=== PATIENT | male | born 1985 | race African-American/Black ===

== ENCOUNTER 2022-02-22 11:22 | Emergency (ER) | payer OTHER ==
[~2022-02-22] VITALS: Ht 188 cm; Wt 90.7 kg
[2022-02-22 12:03] VITALS: BP 128/82
--- NOTE | 2022-02-22 12:03 | NUR ---
TO ER BED 9. "FEEL WEIRD" X 1 WEEK,"HAD UNPROTECTED SEX 2 WEEKS AGO" DENIES ANY DISCHARGE/DYSURIA
[2022-02-22 13:59] LABS: BASOPHILS % (AUTO) 0.3 % (0.0-2.0); EOSINOPHILS % (AUTO) 0.1 % (0.0-6.0); HEMATOCRIT 45 % (39-51); HEMOGLOBIN 15.1 g/dL (13.5-17.5); LYMPHOCYTES % (AUTO) 20.2 % (20.0-44.0); MEAN CORPUSCULAR HGB CONC 34 g/dl (31.0-36.0); MEAN CORPUSCULAR VOLUME 90 fL (80-96); MONOCYTES # (AUTO) 0.5 K/uL (0.1-1.30); NEUTROPHILS # (AUTO) 7.5 K/uL (1.8-8.9); NEUTROPHILS % (AUTO) 74.4 % (43.0-81.0); PLATELET COUNT (AUTO) 242 K/uL (150-450); WHITE BLOOD COUNT (AUTO) 10.1 K/uL (4.3-11.0)
[2022-02-22] MEDS ORDERED: ONDANSETRON HCL/PF 4 MG/2 ML VIAL IVP ONE (14:00)
[2022-02-22] MEDS ORDERED: IV NS 0.9% 500 ML BAG IV ONE (14:00)
[2022-02-22] MEDS ORDERED: KETOROLAC TROMETHAMINE INJ 30 MG/ML VIAL IV ONE (14:00)
[2022-02-22] MEDS ORDERED: ONDANSETRON HCL/PF 4 MG/2 ML VIAL ONE (14:02)
[2022-02-22] MEDS ORDERED: KETOROLAC TROMETHAMINE 15 MG/ML VIAL ONE (14:02)
[2022-02-22 14:09] LABS: BILIRUBIN,URINE NEGATIVE (NEGATIVE); COLOR,URINE YELLOW (YELLOW); LEUKOCYTE ESTERASE ,URINE NEGATIVE (NEGATIVE); NITRITE, URINE NEGATIVE (NEGATIVE); PH,URINE 7.5 (5.0-8.0); PROTEIN,URINE NEGATIVE (NEGATIVE); UGLUCOSE NEGATIVE (NEGATIVE); UROBILINOGEN,URINE 0.2 EU/dL (0.2)
--- NOTE | 2022-02-22 14:10 | NUR ---
IV ESTABLISHED R AC 20G AND OCNVERTED TO SALINE LOCK
[2022-02-22 14:12] LABS: ALBUMIN 4.4 g/dL (3.4-5.0); BILIRUBIN,DIRECT 0.2 mg/dL (0.0-0.2); BILIRUBIN,TOTAL 0.8 mg/dL (0.2-1.0); CALCIUM, SERUM 9.1 mg/dL (8.5-10.1); CREATININE 0.7 mg/dL (0.6-1.3); POTASSIUM 4.2 mmol/L (3.5-5.1); TOTAL PROTEIN, SERUM 7.7 g/dL (6.4-8.2)
[2022-02-22 15:13] LABS: WBC,URINE 0-2 /HPF (0-3)
[2022-02-22 15:14] LABS: BACTERIA,URINE FEW /HPF (None Seen); CALCIUM CARBONATE CRYSTALS,UR None Seen /HPF (None Seen); CALCIUM OXALATE CRYSTALS,UR None Seen /HPF (None Seen); CALCIUM PHOSPHATE CRYSTALS,UR None Seen /HPF (None Seen); COARSE GRANULAR CASTS,URINE None Seen /LPF (None Seen); CYSTINE CRYSTALS,URINE None Seen /HPF (None Seen); FATTY CASTS,URINE None Seen /LPF (None Seen); FINE GRANULAR CASTS,URINE None Seen /LPF (None Seen); HYALINE CASTS, URINE None Seen /LPF (None Seen); MUCUS,URINE None Seen /LPF (None Seen); OTHER CRYSTALS,URINE None Seen /HPF (None Seen); RED BLOOD CELL CASTS,URINE None Seen /LPF (None Seen); SPERM,URINE None Seen /HPF (None Seen); SQUAMOUS EPITHELIAL CELL,UR RARE /HPF (None Seen); TRICHOMONAS,URINE None Seen /HPF (None Seen); TRIPLE PHOSPHATE CRYSTAL,UR None Seen /HPF (None Seen); TYROSINE CRYSTAL,URINE None seen /HPF (None Seen); URIC ACID CRYSTALS,URINE None Seen /HPF (None Seen); URINE AMORPHOUS PHOSPHATES None Seen /HPF (None Seen); URINE AMORPHOUS URATE None Seen /HPF (None Seen); WAXY CASTS,URINE None Seen /LPF (None Seen); YEAST,URINE None Seen /HPF (None Seen)
--- NOTE | 2022-02-22 15:18 | NUR ---
ULTRASOUND AT BEDSIDE
[2022-02-22] MEDS ORDERED: CEFTRIAXONE 500 MG VIAL ONE (15:45)
[2022-02-22] MEDS ORDERED: LIDOCAINE /MPF 1% VIAL 5 ML VIAL ONE (15:46)
[2022-02-22] MEDS ORDERED: AZITHROMYCIN 250 MG TABLET ONE (15:47)
[2022-02-22] MEDS ORDERED: AZITHROMYCIN 250 MG TABLET PO ONE (16:00)
[2022-02-22] MEDS ORDERED: CEFTRIAXONE 500 MG VIAL IM ONE (16:00)
--- NOTE | 2022-02-22 16:05 | NUR ---
IV removed. Catheter intact and site benign. Pressure and 4x4 applied to site. No bleeding noted.Patient discharged to home in stable condition. Written and verbal after care instructions given. Patient verbalizes understanding of instruction.
== END 2022-02-22 16:06 | disposition home or self-care (01) ==
LOC: ER 11:34
DX: R53.83 Other fatigue (principal); Z60.2 Problems related to living alone
CPT/HCPCS: 36415; 71045; 76705; 80048; 80076; 81001; 83690; 84443; 85025; 96361; 96372; 96374; 96375; 99285; J0696; J1885; J2405; J3490

== ENCOUNTER 2022-02-27 09:58 | Emergency (ER) | payer OTHER ==
[~2022-02-27] VITALS: Ht 188 cm; Wt 90.7 kg
[2022-02-27 10:20] VITALS: BP 128/70
--- NOTE | 2022-02-27 10:28 | NUR ---
Paulina santillan in [facility] - 02/27/22 at 1040 by PEARL called to triage, no answer.
--- NOTE | 2022-02-27 10:40 | NUR ---
Patient discharged to home in stable condition. Written and verbal after care instructions given. Patient verbalizes understanding of instruction. Pt ambulatory with a steady gait
== END 2022-02-27 10:40 | disposition home or self-care (01) ==
LOC: ER 09:58
DX: R53.83 Other fatigue (principal); Z60.2 Problems related to living alone